=== PATIENT | female | born 2000 | race African-American/Black ===

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

== ENCOUNTER 2020-12-28 13:04 | Observation (INO) | payer OTHER ==
[2020-12-28 14:07] LABS: BILIRUBIN,URINE NEGATIVE (NEG); CLARITY,URINE CLOUDY; COLOR,URINE YELLOW; NITRITE,URINE NEGATIVE (NEG); PH,URINE 8.5 (<5.0-8.0); PROTEIN,URINE NEGATIVE (NEG-TRACE); UROBILINOGEN,URINE 0.2 mg/dL (0.2 mg/dL)
[2020-12-28 14:16] LABS: BACTERIA,URINE 0 /HPF (0-FEW); RBC,URINE 0 /HPF (0-2)
== END 2020-12-28 15:48 | disposition home or self-care (01) ==
LOC: 3 SO LND 13:04
PROVIDERS: ADMIT Obstetrics & Gynecology; ATTEND Obstetrics & Gynecology
DX: O99.891 Other specified diseases and conditions complicating pregnancy (principal); M54.9 Dorsalgia, unspecified; R10.12 Left upper quadrant pain; O21.2 Late vomiting of pregnancy; Z3A.26 26 weeks gestation of pregnancy
CPT/HCPCS: 59025; 81001; 87086; G0378; G0379